=== PATIENT | male | born 1970 | race Caucasian/White ===

== ENCOUNTER 2021-03-12 14:27 | Emergency (ER) | payer MEDICAID, SELFPAY ==
[2021-03-12 14:32] VITALS: BP 148/90; PULSE 59; RESP 16; TEMP 37.1; O2SAT 97
[2021-03-12 15:57] LABS: Bacteria Urine None Seen; WBC Urine None Seen (0-5/HPF)
--- NOTE | 2021-03-12 16:01 | DI.CT.S_ITS ---
PROCEDURE: CT KIDNEY URETER BLADDER (KUB) INDICATIONS: blood in urine, h/o kidney stone TECHNIQUE: Axial sections were acquired from the lung bases to the pubic symphysis. Coronal and sagittal reformats were performed. For radiation dose reduction, the following was used: automated exposure control, adjustment of mA and/or kV according to patient size. FINDINGS: Image quality: Excellent. Lung bases: Unremarkable. Heart: No significant findings. URINARY: Right Kidney: No stones or hydronephrosis. Right Ureter: There is a 1.0 x 0.6 cm calculus noted in the right renal pelvis with mild distention of the renal pelvis and adjacent segment of the proximal right ureter. Minimal periureteral stranding of the proximal right ureter and renal pelvis. Left Kidney: No stones or hydronephrosis. Left Ureter: No hydroureter. Bladder: Normal wall thickness. No stones. ABDOMEN: Liver: Unremarkable. Gallbladder: Unremarkable. Biliary ducts: Unremarkable. Pancreas: No evidence for pancreatitis. Spleen: Unremarkable. Adrenal Glands: Unremarkable. Stomach and Bowel: Stomach, small bowel loops, and colon are unremarkable. Normal appendix. Peritoneum: No abnormal intraperitoneal fluid. No free air. Ventral Wall: No hernia. Abdominal Nodes: No enlarged retroperitoneal or mesenteric lymph nodes. Vessels: Aorta and inferior vena cava are normal in size. PELVIS: Pelvic Organs: Unremarkable. Pelvic Nodes: Unremarkable. Miscellaneous: No inguinal hernias are seen. Bones: Unremarkable. No acute compression fractures of the imaged spine. IMPRESSION: 1. There is a minimally obstructing 1.0 x 0.6 cm ureteral stone noted in the right renal pelvis with associated minimal distension of the right renal pelvis and adjacent segment of proximal right ureter. There is also minimal associated stranding involving the right renal pelvis and proximal right ureter. Recommend correlating for concurrent symptoms of infectious uropathy. 2. Normal appendix. Dictated by: Thanh Mcdonough M.D. on 03/12/2021 at 16:39 Approved by: Thanh Mcdonough M.D. on 03/12/2021 at 16:45
[2021-03-12 16:03] LABS: RBC Urine 5-10/HPF (0-5/HPF)
[2021-03-12 16:04] LABS: Culture Indicated Urine Cult Not Indicated
--- NOTE | 2021-03-12 17:52 | ED_ITS ---
HPI - Abdominal Pain General Chief Complaint: Abdominal Pain Stated Complaint: problem with kidney, stone comes every 5 yrs or so Time Seen by Provider: 03/12/21 17:51 Source: patient Mode of arrival: Ambulatory History of Present Illness HPI narrative: 50-year-old gentleman with no significant medical history but up prior history of kidney stones that he has successfully passed. Presents with 3-4 days of an aching recurrent pain in the right flank. He is noted to have hematuria in the emergency department today he reports no fevers, chills. Related Data Previous Rx's Medication Instructions Recorded oxycodone-acetaminophen 1 tab PO Q6H PRN 7 Days #20 tab 03/12/21 tamsulosin [Flomax] 0.4 mg PO DAILY #30 cap 03/12/21 Review of Systems Review of Systems Narrative: Pertinent positive and negative findings as per HPI Remainder of review of systems is otherwise unremarkable for Constitutional: Fevers, chills, weakness ENT: No sore throat, neck pain, ear pain CV: Chest pain, palpitations, Respiratory: Cough, wheeze, dyspnea GI: Nausea, vomiting, diarrhea, Exam Narrative Exam Narrative: General: Healthy appearing, in no acute distress. Able to give a complete and coherent history. Well-nourished well-developed HEENT: Moist mucous membranes, normal sclera with reactive pupils, Respiratory: Lungs are clear to auscultation, no wheezing no rales no rhonchi. Full and symmetrical air movement Cardiac: Regular rate and rhythm no murmurs no bruits Abdomen: Soft, nontender, good bowel tones, right flank pain Skin: Warm and dry, no rashes Neurologic: Grossly neurologically intact with no obvious asymmetries or abnormalities Extremities: No trauma, well perfused Psych: Cooperative, appropriate insight and affect Initial Vital Signs Initial Vital Signs: Vital Signs Temperature 98.8 F 03/12/21 14:32 Pulse Rate 59 L 03/12/21 14:32 Respiratory Rate 16 03/12/21 14:32 Blood Pressure 148/90 H 03/12/21 14:32 Pulse Oximetry 97 03/12/21 14:32 Course Orders Ordered: ED Orders 03/12/21 14:35 Urine Microscopic Stat 03/12/21 16:01 CT kidney ureter bladder (KUB) Stat Vital Signs Vital signs: Vital Signs - 8 hr 03/12/21 14:32 03/12/21 18:11 Temperature 98.8 F Pulse Rate 59 L 52 L Respiratory Rate 16 Blood Pressure 148/90 H 151/86 H Pulse Oximetry 97 98 MDM - Abdominal Pain Medical Records Attestation: I reviewed the patient's medical records. Lab Data Attestation: I reviewed the patient's lab results. Labs: Lab Results 03/12/21 Range/Units 14:35 Urine RBC 5-10/hpf H (0-5/HPF) Urine WBC None seen (0-5/HPF) Urine Bacteria None seen (None) Ur Culture Indicated? Cult not indicated Point of care testing: Urine Dip Bedside Urine Glucose Negative Bedside Urine Bilirubin - Negative Bedside Urine Ketone - Negative Urine Specific [place] 1.010 Bedside Urine Occult Blood +++ Bedside Urine pH 6.0 Bedside Urine Protein - Negative Bedside Urine Urobilinogen - Negative Bedside Urine Nitrite - Negative Bedside Urine Leukocytes - Negative Esterase Imaging Data CT scan - abdomen/pelvis: Radiologist's Impression: FINDINGS: Image quality: Excellent. Lung bases: Unremarkable. Heart: No significant findings. URINARY: Right Kidney: No stones or hydronephrosis. Right Ureter: There is a 1.0 x 0.6 cm calculus noted in the right renal pelvis with mild distention of the renal pelvis and adjacent segment of the proximal right ureter. Minimal periureteral stranding of the proximal right ureter and renal pelvis. Left Kidney: No stones or hydronephrosis. Left Ureter: No hydroureter. Bladder: Normal wall thickness. No stones. ABDOMEN: Liver: Unremarkable. Gallbladder: Unremarkable. Biliary ducts: Unremarkable. Pancreas: No evidence for pancreatitis. Spleen: Unremarkable. Adrenal Glands: Unremarkable. Stomach and Bowel: Stomach, small bowel loops, and colon are unremarkable. Normal appendix. Peritoneum: No abnormal intraperitoneal fluid. No free air. Ventral Wall: No hernia. Abdominal Nodes: No enlarged retroperitoneal or mesenteric lymph nodes. Vessels: Aorta and inferior vena cava are normal in size. PELVIS: Pelvic Organs: Unremarkable. Pelvic Nodes: Unremarkable. Miscellaneous: No inguinal hernias are seen. Bones: Unremarkable. No acute compression fractures of the imaged spine. IMPRESSION: 1. There is a minimally obstructing 1.0 x 0.6 cm ureteral stone noted in the right renal pelvis with associated minimal distension of the right renal pelvis and adjacent segment of proximal right ureter. There is also minimal associated stranding involving the right renal pelvis and proximal right ureter. Recommend correlating for concurrent symptoms of infectious uropathy. 2. Normal appendix. Dictated by: Thanh Mcdonough M.D. on 03/12/2021 at 16:39 MDM Narrative Medical decision making narrative: Large right kidney stone in the renal pelvis. May be too large to even begin to pass through the ureter. At this point there is no evidence of infection or complete obstruction of the kidney. Pain is [id number]-ciehptyh in nature. He is safe for home discharge but will need follow-up with Urology in the near future. He is given phone numbers and instructed to call for follow-up. Discharge Plan Departure Patient Disposition: Home Clinical Impression: Calculus of kidney Instructions: DI for Kidney Stones Activity Restrictions/Additional Instructions: Thank you for coming in today You do have a large kidney stone in your right kidney that looks like it is trying to come out but might be too big to fit down. Please make sure you are staying well hydrated Using 400 mg of ibuprofen (2 lhzd-qqn-zqrysus pills) and 1 Tylenol every 6 hours can be very helpful in controlling pain. For severe pain using 400 mg of ibuprofen and 1 Percocet can be helpful You do need to see a urologist. Please contact Dr. Sanchez's office to set up an appointment. If you find that you are developing a fever, can not pee, have pain that is unable to be controlled with pain medications at home please return to the emergency department I wish you the best Prescriptions: New oxycodone-acetaminophen 5-325 mg tablet 1 tab PO Q6H PRN (Reason: pain) 7 Days Qty: 20 RF: 0 tamsulosin [Flomax] 0.4 mg capsule 0.4 mg PO DAILY Qty: 30 RF: 0 Referrals: Rebecca Sanchez MD [Physician] -
[2021-03-12 18:11] VITALS: BP 151/86; PULSE 52; O2SAT 98
== END 2021-03-12 19:12 | disposition home or self-care (01) ==
PROVIDERS: Emergency Medicine; Emergency Provider Emergency Medicine
DX: N20.0 Calculus of kidney (principal); R31.9 Hematuria, unspecified
CPT/HCPCS: 74176; 81003; 81015; 99283; 99284

== ENCOUNTER → 2021-03-20 15:47 | Outpatient (CLI) | payer MEDICAID, SELFPAY ==
--- NOTE | 2021-03-20 15:51 | DI.RAD.S_ITS ---
PROCEDURE: XR KUB INDICATIONS: Kidney stone TECHNIQUE: One view of the abdomen acquired. COMPARISON: [facility], CT, CT KIDNEY URETER BLADDER (KUB), 03/12/2021, 16:27. FINDINGS: Surgical changes and devices: None. Bowel: Bowel gas pattern is normal. Soft tissues: 1 cm calcification projected over the right flank corresponding to the previously visualized right renal pelvic stone. Visualized solid organ contours appear normal in size. Bones: No suspicious bony lesions. IMPRESSION: 1 cm calcification again seen position within the right renal pelvis as was seen on prior CT KUB. Dictated by: Canelo Charles [facility] Interpreted: Bang Badillo MD on 03/20/2021 at 16:09 Transcribed by: JOCELYN on 03/20/2021 at 16:11 Approved by: Bang Badillo M.D. on 03/20/2021 at 18:08
[2021-03-20 17:39] LABS: Prostate Specific Antigen 0.553 ng/mL (0.10-4.00)
== END ==
PROVIDERS: Referring Provider Specialist; Visit Provider Specialist
DX: N20.0 Calculus of kidney (principal)
CPT/HCPCS: 36415; 74018; 84153; 99213

== ENCOUNTER → 2021-07-04 10:38 | Outpatient (CLI) | payer OTHER, MEDICAID, SELFPAY ==
--- NOTE | 2021-07-04 10:41 | DI.RAD.S_ITS ---
PROCEDURE: XR KUB INDICATIONS: kidney stones TECHNIQUE: One view of the abdomen acquired. COMPARISON: [facility], CT, CT KIDNEY URETER BLADDER (KUB), 03/12/2021, 16:27. [facility], CR, XR KUB, 03/20/2021, 15:52. FINDINGS: Surgical changes and devices: None. Bowel: Bowel gas pattern is normal. Soft tissues: Right kidney stone measuring approximately 0.9 x 0.6 cm is unchanged. This is in the region of the right renal pelvis. No suspicious abdominal calcifications. Visualized solid organ contours appear normal in size. Small phleboliths in the right pelvis. Lung bases are clear. Bones: No suspicious bony lesions. IMPRESSION: Right kidney stone in the region of the right renal pelvis appears unchanged. Consider further evaluation for exclude hydronephrosis with renal ultrasound or CT KUB if clinically indicated. Dictated by: Bang Badillo M.D. on 07/04/2021 at 10:51 Approved by: Bang Badillo M.D. on 07/04/2021 at 10:53
== END ==
PROVIDERS: Referring Provider Specialist; Visit Provider Specialist
DX: N20.0 Calculus of kidney (principal)
CPT/HCPCS: 74018; 99215

== ENCOUNTER → 2021-08-01 12:30 | Outpatient (CLI) | payer OTHER, MEDICAID, SELFPAY ==
[2021-08-01 13:59] LABS: COVID19 -Nasal RAPID Negative (Negative)
== END ==
PROVIDERS: Referring Provider Specialist; Visit Provider Specialist
DX: Z20.822 Contact with and (suspected) exposure to COVID-19 (principal)
CPT/HCPCS: 87635; C9803

== ENCOUNTER 2021-08-02 07:49 | Day surgery (SDC) | payer OTHER, MEDICAID, SELFPAY ==
[2021-07-30 08:01] VITALS: BMI 22.1
[2021-08-02] VITALS (8 sets, daily range): BP systolic 127–166; BP diastolic 84–104; PULSE 71–106; RESP 12–16; TEMP 36.1–37.2; O2SAT 97–99; BMI 22.1
[2021-08-02] MEDS: LACTATED RINGERS 1,000 ML 42 ML IV ×2 (08:45→10:45)
--- NOTE | 2021-08-02 09:50 | PM.PREOP ---
Pre-operative Note Interval Note History & Physical reviewed/Exam performed by Physician: Yes Changes to H&P: No
[2021-08-02] MEDS: CEFAZOLIN 1 GM VIAL 2 GM IV (10:46)
--- NOTE | 2021-08-02 10:46 | SUR.OPER ---
PATIENT POSITIONED ON ESWL TABLE BY EFFIE MEJIA. PATIENT POSITIONED LITHOTOMY IN STIRRUS BY EFFIE MEJIA. ARMS POSITIONED AT PATIENT'S SIDES. PILLOW UNDER PATIENT'S HEAD. M
--- NOTE | 2021-08-02 11:57 | PM.OP.1 ---
Operative Date/Time/Diagnoses Date of procedure: 08/02/21 Time of procedure: 11:57 Pre-op diagnosis: 1. Right renal colic 2. 1+ cm right renal pelvic calculus. Post-op diagnosis: same Procedure & Clinicians Procedure: 1. Cystoscopy/placement right ureteral stent. 2. Right extra corporal shockwave lithotripsy (maximal power level 7.0 x 2000 shocks). Same procedure as scheduled: Yes Indications: 1. Right renal colic 2. Obstructing 1+ cm right renal pelvic/right ureteropelvic junction calculus. Surgeon: Rebecca Sanchez Click Yes if Unassisted: Yes Anesthesia Type: General Operative Notes Findings: 1. Urethra-normal caliber without annular stricture or lesion. 2. External sphincter-coapted with normal overlying urothelium. 3. Epsadgzz-9-0.5 cm length with mild lateral lobe hyperplasia and moderately elevated median bar. 4. Bladder-normal ureteral orifices bilaterally. Trace to 1+ trabeculation. No stone, tumor, foreign body seen. Closure Type: not applicable Specimen(s): none sent Applied: other (Six Chinese by 22-32 cm multilink stent.) Estimated Blood Loss (mL): 0 Tourniquet time (min): 0 Procedure in detail: The patient was positioned in supine and was administered general anesthesia. He was then repositioned in semi lithotomy and the lower abdomen, genitalia, and groin were then prepped and draped in sterile fashion. A 22 Chinese panendoscope was then passed the lower urinary tract with the findings as described above. Next, a 0.35 hybrid guidewire was selected in then was passed of the right collecting system under direct and fluoroscopic guidance. Over this a 6 Chinese by 22-32 cm multi-length stent was advanced, again, under direct and fluoroscopic guidance. NO RETRIEVAL LINE WAS LEFT ATTACHED. The bladder was then drained completely and all instrumentation removed. The patient was repositioned in supine. The index calculus was then localized in the X,Y and Z planes fluoroscopically. Lithotripsy was then commenced at minimal power level for 200 shocks. A 2 minute pause was is in conducted, after which lithotripsy was commenced and gradually the power level was increased to maximum 7.0. At 2000 shocks there appeared to be very good stone fragmentation radiographically. Treatment was halted at that juncture. The patient was then awakened, transferred to [facility], then transported recovery in stable condition. Complications: none Post-operative Condition: stable Disposition: PACU Plan for aftercare: Discharge home
--- NOTE | 2021-08-02 13:13 | SUR.PHASEII ---
Patient doing well post op. However plan is to leave in a taxi, so are keeping him for an hour to be sure hes stable
[2021-08-02] MEDS: FUROSEMIDE 20 MG/2 ML VIAL IV (13:19)
== END 2021-08-02 14:15 | disposition home or self-care (01) ==
PROVIDERS: Referring Provider Specialist; Visit Provider Specialist
PROC: (CPT 50590; principal; 2021-08-02 09:15)
PROC: (CPT 50590; 2021-08-02 09:15)
DX: N20.0 Calculus of kidney (principal); N20.1 Calculus of ureter; N40.0 Benign prostatic hyperplasia without lower urinary tract symptoms
CPT/HCPCS: 50590; 52332; J0690; J1100; J1940; J2250; J2405; J2704; J3010

== ENCOUNTER → 2021-08-28 08:56 | Outpatient (CLI) | payer SELFPAY ==
--- NOTE | 2021-08-28 08:59 | DI.RAD.S_ITS ---
PROCEDURE: XR KUB INDICATIONS: kidney stones/right ureteral stent/post ESWL TECHNIQUE: One view of the abdomen acquired. COMPARISON: [facility], CR, XR KUB, 07/04/2021, 10:35. FINDINGS: Surgical changes and devices: Right-sided ureteral stent is seen in place. Bowel: Bowel gas pattern is normal. Soft tissues: 8 x 6 mm oval calcification is seen projecting in right renal fossa adjacent to the ureteral stent not significantly changed in appearance compared to prior study. No gross left-sided renal calcification is seen. Likely phleboliths are seen in bilateral lower pelvis. Visualized solid organ contours appear normal in size. Bones: No suspicious bony lesions. IMPRESSION: 8 x 6 mm oval calcification in right kidney with right-sided ureteral stent in place. No gross left-sided renal calcification. Suggestion of phleboliths in lower pelvis bilaterally. Dictated by: Alvino Emerson M.D. on 08/28/2021 at 9:18 Approved by: Alvino Emerson M.D. on 08/28/2021 at 9:22
== END ==
PROVIDERS: Referring Provider Specialist; Visit Provider Specialist
DX: N20.0 Calculus of kidney (principal); Z87.442 Personal history of urinary calculi; Z96.0 Presence of urogenital implants
CPT/HCPCS: 52310; 74018; 81002; 99214